=== PATIENT | female | born 1990 | race Caucasian/White ===

== ENCOUNTER 2022-04-17 13:50 | Inpatient (IN) | payer OTHER ==
[~2022-04-17] VITALS: Ht 167.6 cm; Wt 137.4 kg
[2022-04-17] MEDS ORDERED: MORPHINE SULFATE 10 MG/ML VIAL IVP ONE (13:55)
[2022-04-17] MEDS ORDERED: OXYTOCIN/0.9 % SODIUM CHLORIDE 1,000 ML IV SCH (15:30)
[2022-04-17] MEDS ORDERED: LR 1,000 ML IV ONE (15:30)
[2022-04-17] MEDS ORDERED: NALBUPHINE HCL 10 MG/ML AMP IVP PRN (15:30)
[2022-04-17] MEDS ORDERED: DINOPROSTONE 10 MG SUPP VG ONE (15:30)
[2022-04-17] MEDS ORDERED: TERBUTALINE SULFATE 1 MG/ML VIAL SUBCUT ONE (15:30)
[2022-04-17 16:31] VITALS: BP_SYST 141
[2022-04-17 16:43] LABS: BASOPHILS % (AUTO) 0.2 % (0.0-2.0); EOSINOPHILS # (AUTO) 0.1 K/uL (0.0-0.4); HEMATOCRIT 38.6 % (36-48); HEMOGLOBIN 13.2 g/dL (12.0-16.0); LYMPHOCYTES # (AUTO) 1.7 K/uL (1.0-5.5); LYMPHOCYTES % (AUTO) 15.8 % (20.5-51.5); MEAN CORPUSCULAR HEMOGLOBIN 29 pg (27-31); MEAN CORPUSCULAR HGB CONC 34 % (32-36); MEAN CORPUSCULAR VOLUME 83 fL (79.0-98.0); MONOCYTES # (AUTO) 0.6 K/uL (0.0-1.0); MONOCYTES % (AUTO) 5.8 % (1.7-9.3); NEUTROPHILS # (AUTO) 8.5 K/uL (1.8-7.7); NEUTROPHILS % (AUTO) 77.2 % (40.0-70.0); PLATELET COUNT (AUTO) 216 K/uL (130-430); RED BLOOD CELL COUNT(AUTO) 4.64 MIL/uL (4.2-6.2); RED CELL DISTRIBUTION WIDTH 14.1 % (9.0-15.0)
[2022-04-17] MEDS: LR 1,000 ML IV SCH (21:41)
[2022-04-18] MEDS ORDERED: DINOPROSTONE 10 MG SUPP VG ONE (19:30)
[2022-04-19] MEDS: LR 1,000 ML IV SCH (01:43)
[2022-04-19] MEDS ORDERED: CLINDAMYCIN 900 mg/50mL D5W 50 ML IV ONE (10:30)
[2022-04-19] MEDS ORDERED: LR 1,000 ML IV ONE (10:30)
[2022-04-19 14:42] VITALS: BP_SYST 108
[2022-04-19] MEDS ORDERED: BISACODYL 10 MG/SUPPOSITORY RC PRN (14:45)
[2022-04-19] MEDS ORDERED: RHO(D) IMMUNE GLOBULIN/MALTOSE 1500 UNITS/1.3 ML (WINHRO) IM PRN (14:45)
[2022-04-19] MEDS ORDERED: MEASLES,MUMPS&RUBELLA VACC/PF 12500 UNIT/0.5 ML VIAL SUBQ PRN (14:45)
[2022-04-19] MEDS ORDERED: ANUSOL 1 EA SUPP.RECT (PREPARATION H) RC PRN (14:45)
[2022-04-19] MEDS ORDERED: OXYCODONE/ACETAMINOPHEN 5-325 TABLET PO PRN (14:45)
[2022-04-19] MEDS ORDERED: OXYCODONE/ACETAMINOPHEN *10*mg/325 mg TABLET PO PRN (14:45)
[2022-04-19] MEDS ORDERED: ONDANSETRON HCL 4 MG/2 ML VIAL IVP PRN (14:45)
[2022-04-19] MEDS ORDERED: NALOXONE HCL 0.4 MG/ML AMP (NARCAN) IVP PRN ×2 (14:45)
[2022-04-19] MEDS ORDERED: OXYTOCIN/0.9 % SODIUM CHLORIDE 1,000 ML IV SCH (14:45)
[2022-04-19] MEDS ORDERED: TEMAZEPAM 15 MG CAPSULE PO PRN (14:45)
[2022-04-19] MEDS ORDERED: DIPHENHYDRAMINE INJ 50 MG/ML VIAL IM PRN (14:45)
[2022-04-19] MEDS ORDERED: HYDROcodone/ACETAMIN 5-325 MG TAB (NORCO/ VICODIN) PO PRN (14:45)
[2022-04-19] MEDS ORDERED: LR 1,000 ML IV SCH (14:45)
[2022-04-19] MEDS ORDERED: SIMETHICONE 80 MG TAB.CHEW PO PRN (14:45)
[2022-04-19] MEDS ORDERED: KETOROLAC TROMETHAMINE 60 MG/2 ML VIAL IM PRN (14:45)
[2022-04-19] MEDS ORDERED: LANOLIN 7 GM OINT. TP PRN (14:45)
[2022-04-19] MEDS ORDERED: DIPH-TET-PERTUS Vaccine 0.5 ML VIAL (ADACEL) I.M. PRN (14:45)
[2022-04-19] MEDS ORDERED: ACETAMINOPHEN I.V. 1000 MG 100 ML IV ONE (15:00)
[2022-04-19] MEDS ORDERED: DIPHENHYDRAMINE INJ 50 MG/ML VIAL ONE (15:17)
[2022-04-19] MEDS ORDERED: OXYTOCIN 10 UNIT/ML VIAL ONE (16:13)
[2022-04-19] MEDS ORDERED: CEFAZOLIN 1 GM IVPB PREMIX 50 ML IV SCH (18:00)
[2022-04-19] MEDS ORDERED: ACETAMINOPHEN I.V. 1000 MG 100 ML IV SCH ×2 (21:00)
[2022-04-19] MEDS: DOCUSATE SODIUM 100 MG CAPSULE PO SCH (21:24)
[2022-04-19] MEDS: SENNOSIDES/DOCUSATE SODIUM 1 TAB TABLET(SENOKOT-S) PO SCH (21:25)
[2022-04-19] MEDS: CLINDAMYCIN 600 mg/50mL D5W 50 ML IV SCH (23:48)
[2022-04-20] MEDS: CLINDAMYCIN 600 mg/50mL D5W 50 ML IV SCH (06:00)
[2022-04-20] MEDS: KETOROLAC TROMETHAMINE 30 MG VIAL IVP SCH ×3 (06:00→17:29)
[2022-04-20] MEDS: DOCUSATE SODIUM 100 MG CAPSULE PO SCH ×2 (08:55→20:53)
[2022-04-20 12:08] LABS: BASOPHILS % (AUTO) 0.1 % (0.0-2.0); EOSINOPHILS % (AUTO) 0.2 % (0.0-4.0); HEMATOCRIT 31.2 % (36-48); HEMOGLOBIN 10.7 g/dL (12.0-16.0); LYMPHOCYTES # (AUTO) 2.1 K/uL (1.0-5.5); MEAN CORPUSCULAR HEMOGLOBIN 29 pg (27-31); MEAN CORPUSCULAR HGB CONC 34 % (32-36); MEAN CORPUSCULAR VOLUME 85 fL (79.0-98.0); MONOCYTES # (AUTO) 0.7 K/uL (0.0-1.0); MONOCYTES % (AUTO) 6.8 % (1.7-9.3); NEUTROPHILS % (AUTO) 73.9 % (40.0-70.0); PLATELET COUNT (AUTO) 194 K/uL (130-430); RED BLOOD CELL COUNT(AUTO) 3.68 MIL/uL (4.2-6.2); RED CELL DISTRIBUTION WIDTH 14.2 % (9.0-15.0); WHITE BLOOD COUNT (AUTO) 10.8 K/uL (4.8-10.8)
[2022-04-20] MEDS: SENNOSIDES/DOCUSATE SODIUM 1 TAB TABLET(SENOKOT-S) PO SCH (20:53)
[2022-04-21] MEDS: IBUPROFEN 600 MG TABLET PO SCH ×3 (00:11→11:30)
[2022-04-21] MEDS ORDERED: NS IRRIG SOLN 1000 ML IR ONE (13:55)
[2022-04-21] MEDS ORDERED: OXYTOCIN 10 UNIT/ML VIAL IV ONE (13:55)
[2022-04-21] MEDS ORDERED: BUPIVACAINE /DEX PF 0.75% SPINAL 2 ML AMP INJ ONE (13:55)
[2022-04-21] MEDS ORDERED: fentaNYL CITRATE 250 MCG/5 ML AMP IV ONE (13:55)
[2022-04-21] MEDS ORDERED: CLINDAMYCIN PHOSPHATE 900 mg/50mL D5W IV ONE (13:55)
[2022-04-21] MEDS ORDERED: DEXAMETHASONE SOD PHOSPHATE 4 MG/ML VIAL IVP ONE (13:55)
[2022-04-21] MEDS ORDERED: LR 1,000 ML IV.SOLN IV ONE (13:55)
[2022-04-21] MEDS ORDERED: MORPHINE SULFATE PF 200 MG/20 ML AMP INJ ONE (13:55)
[2022-04-22 20:06] LABS: FTA-Ab (T PALLIDUM) Non Reactive (Non Reactive)
== END 2022-04-21 13:56 | disposition home or self-care (01) | DRG 787 ==
LOC: SPU 13:50
PROVIDERS: ADMIT Specialist; ATTEND Specialist
PROC: 3E033VJ Introduction of Other Hormone into Peripheral Vein, Percutaneous Approach (ICD-10-PCS; 2022-04-19)
PROC: 3E0P7VZ Introduction of Hormone into Female Reproductive, Via Natural or Artificial Opening (ICD-10-PCS; 2022-04-19)
PROC: 10D00Z1 Extraction of Products of Conception, Low, Open Approach (ICD-10-PCS; principal; 2022-04-19 13:39)
DX: O61.9 Failed induction of labor, unspecified (principal); D62 Acute posthemorrhagic anemia; O99.214 Obesity complicating childbirth; Z20.822 Contact with and (suspected) exposure to COVID-19; Z37.0 Single live birth; Z3A.39 39 weeks gestation of pregnancy
CPT/HCPCS: 36415; 81002; 85025; 86592; 86780; 86886; 86900; 86901; 94760; J0131; J1100; J1200; J1885; J2270; J2274; J2405; J2590; J3010; J3490; J7120